=== PATIENT | female | born 1990 | race Caucasian/White ===

== ENCOUNTER 2020-03-13 18:32 | Inpatient (IN) | payer OTHER, SELFPAY ==
[2020-03-13] VITALS (33 sets, daily range): BP systolic 111–149; BP diastolic 50–88; PULSE 63–138; TEMP 37; O2SAT 99–100; BMI 28.8
[2020-03-13 21:18] LABS: Basophils Percent Auto 0.2 % (0.2-1.2); Eosinophils Percent Auto 0.2 % (0-4.4); Hematocrit 38.8 % (37.0-47.0); Hemoglobin 14.1 g/dL (12.0-15.0); Immature Granulocyte Absolute 0.06 K/mm3 (0.00-0.031); Immature Granulocyte Percent A 0.6 % (0-0.5); Lymphocytes Absolute Auto 1.89 K/mm3 (0.9-3.2); Lymphocytes Percent Auto 18.9 % (18.3-44.2); Mean Corpuscular HGB Conc 36.3 g/dl (32-36); Mean Corpuscular Hemoglobin 33.3 pg (26-34); Mean Corpuscular Volume 91.7 fl (80-100); Monocytes Absolute Auto 0.6 K/mm3 (0.1-0.6); Monocytes Percent Auto 6.4 % (2.6-8.5); Neutrophils Absolute Auto 7.4 K/mm3 (1.3-6.7); Neutrophils Percent Auto 73.7 % (45.5-73.1); Platelet Count Result 171 k/mm3 (150-375); Red Blood Count 4.23 M/mm3 (4.2-5.4); Red Cell Distribution Width 12.7 % (11.5-14.5)
[2020-03-13] MEDS: LACTATED RINGERS 1,000 ML 125 ML IV CONT ×2 (21:21→22:40)
--- NOTE | 2020-03-13 21:24 | LDADM ---
This patient, Miri Arias, was admitted to Labor/Delivery/Recovery 107 on 03/13/20 at 18:32. Plans for labor, pain management and were discussed with patient. Patient/family oriented to hospital policies and general routines including ID bracelet, bed and alarms, visiting hours, pain management, procedures, bathroom and other care routines, personal items, smoking policy, room service/diet and guest tray routines, infant security routines, and visiting hours. Patient/Family are encouraged to report perceived risks to care and to ask questions if they do not understand what they are told or what they should do. See OBIX for further documentation.
--- NOTE | 2020-03-13 22:01 | WPDANESEPPF ---
Anes - Initial Pre Proc Eval Procedure: labor epidural Date/Time: 03/13/20 22:01 Surgeon: Zach Flynn MD Pre Op Diagnosis: labor pain Pre Op Diagnosis: Contractions Patient Data Age: 29 Gender: F Height: 1.65 m Weight: 78.5 kg Last Vital Signs Pulse 81 03/13/20 22:00 BP 124/72 03/13/20 22:00 Pulse Ox 99 03/13/20 21:57 Allergies Allergy/AdvReac Type Severity Reaction Status Date / Time Penicillins Allergy Mild RASH,NAUSEA Verified 02/17/20 13:23 Home Medications Medication Instructions Recorded Confirmed Type PNV cmb#95-ferrous fumarate-FA 1 tablet PO DAILY 02/17/20 02/17/20 History [] Laboratory Tests 03/13/20 03/13/20 21:12 21:12 WBC 10.0 K/mm3 K/mm3 (4.5-10.0) RBC 4.23 M/mm3 M/mm3 (4.2-5.4) Hgb 14.1 g/dL g/dL (12.0-15.0) Hct 38.8 % % (37.0-47.0) MCV 91.7 fl fl (80-100) MCH 33.3 pg pg (26-34) MCHC 36.3 g/dl H g/dl (32-36) RDW 12.7 % % (11.5-14.5) Plt Count 171 k/mm3 k/mm3 (150-375) MPV 10.0 fl fl (7.4-10.4) Immature Gran % (Auto) 0.6 % H % (0-0.5) Neut % (Auto) 73.7 % H % (45.5-73.1) Lymph % (Auto) 18.9 % % (18.3-44.2) [place] % (Auto) 6.4 % % (2.6-8.5) Eos % (Auto) 0.2 % % (0-4.4) Baso % (Auto) 0.2 % % (0.2-1.2) Lymph # (Auto) 1.89 K/mm3 K/mm3 (0.9-3.2) [place] # (Auto) 0.6 K/mm3 K/mm3 (0.1-0.6) Eos # (Auto) 0.0 K/mm3 K/mm3 (0-0.3) Baso # (Auto) 0.0 K/mm3 K/mm3 (0.0-0.1) Abs Immat Gran (auto) 0.06 K/mm3 H K/mm3 (0.00-0.031) Absolute Neuts (auto) 7.4 K/mm3 H K/mm3 (1.3-6.7) Absolute Nucleated RBC 0.0 K/mm3 K/mm3 (0.0-0.012) Nucleated RBC % 0.0 % % (0.0-0.2) RPR Pending Patient hx anesthesia problems: none Family hx anesthesia problems: none [facility] Family History Family History Other Unknown family medical history Social History Social History Smoking status: Never smoker Substance use: never Spiritual care concerns: No Anes - Eval Final PreProcedure Day of Procedure 03/13/20 22:01 Patient weight: normal Heart: regular rate and rhythm Lungs: clear to auscultation and normal air movement Airway: Mallampati scale Neurological: alert and oriented ASA classification: II Anesthetic plan: proceed Anesthesia type and monitoring: regional epidural and standard monitoring Informed Consent: The patient's anesthetic plan and its attendant risks and benefits were discussed with the patient/family/POA. Questions were solicited and answers provided to the satisfaction of the patient/family/POA.
--- NOTE | 2020-03-13 22:34 | WPDOBADMIT ---
Obstetrics - Admit Note Admission Note: record reviewed. Additions to the history and/or subsequent changes in the physical findings follow. 29 y/o at 39 2/7 weeks here with contractions. GBS neg. Cervix changed from 2 to 4 cm and labor was diagnosed. She was admitted and is now comfortable with an epidural. AVSS NST reactive TOCO: contractions every 2-3 min ABD soft, nontender, gravid, vertex EXT nontender Cervix 6-7/90/0. AROM with clear fluid. Vertex. A: IUP at term with labor. P: Anticipate .
[2020-03-13] MEDS: OXYTOCIN 30 UNITS/NS 500 ML 30 UNITS/500 ML BAG 999 UNITS IV CONT (23:03)
--- NOTE | 2020-03-13 23:21 | P.PCNOB_ITS ---
OB - Delivery Note Procedure Delivery date: 03/13/20 Procedure: Delivery monitor: external FHT and external uterine Route of delivery: Laceration description: Perineal - 2nd Degree Delivery repair: vicryl (3-0 Vicryl) Specimen: Yes (cord blood) Estimated blood loss (mL): 220 Anesthesia type: Epidural Disposition: PACU Complications: None Narrative: 29 y/o at 39 2/7 weeks gestation who presented to the hospital with contractions. Labor was diagnosed. Amniotomy was performed with return of clear fluid. She received an epidural for pain control. Her labor progressed rapidly and her cervix dilated completely. She pushed with good effort and delivered the infant's head to the perineum, followed by the body. The nose and mouth were bulb suctioned. After a delay, the cord was clamped and cut. The infant was handed off the field. Cord blood was collected. The placenta delivered spontaneously and was grossly normal in appearance. The usual 3 vessel cord was noted. A second degree midline perineal laceration was sustained. This was reapproximated using 3 0 Vicryl in the usual layered fashion. Excellent hemostasis resulted as did excellent reapproximation of the normal anatomy. Needle and instrument counts were correct. The patient was taken to recovery room in stable condition. The went to the nursery in stable condition. I was present and scrubbed for the entire delivery. [place] Baby Date of : 03/13/20 Time of : 22:59 Weeks of gestation at delivery: 39 Infant gender: Male Weight (pounds): 7 Weight (ounces): 3 presentation: vertex position: Left Occiput Anterior Placenta delivery description: Spontaneous and Normal Configuration cord vessel description: 3 Vessels score one minute: 9 score five minutes: 9
--- NOTE | 2020-03-13 23:29 | PM.OBDSVD ---
DS: Admitting Diagnosis Admitting Diagnosis Admitting Diagnosis: IUP at 39 2/7 weeks Labor DS: Discharge Diagnosis Discharge Diagnosis (1) (normal spontaneous vaginal delivery): Code(s): O80 - Encounter for full-term uncomplicated delivery Status: Acute OB - DS: Summary OB Procedures : None OB Procedures Intrapartum: Spontaneous Vag Delivery OB Procedures: : None Time Spent with Patient Time attestation: Total time spent providing and/or coordinating discharge services: DS: Data Data Completed and Pending Labs on day of discharge: Labs from last 24 hours 03/13/20 03/13/20 03/13/20 21:12 21:12 21:12 WBC 10.0 RBC 4.23 Hgb 14.1 Hct 38.8 MCV 91.7 MCH 33.3 MCHC 36.3 H RDW 12.7 Plt Count 171 MPV 10.0 Immature Gran % (Auto) 0.6 H Neut % (Auto) 73.7 H Lymph % (Auto) 18.9 [place] % (Auto) 6.4 Eos % (Auto) 0.2 Baso % (Auto) 0.2 Lymph # (Auto) 1.89 [place] # (Auto) 0.6 Eos # (Auto) 0.0 Baso # (Auto) 0.0 Abs Immat Gran (auto) 0.06 H Absolute Neuts (auto) 7.4 H Absolute Nucleated RBC 0.0 Nucleated RBC % 0.0 RPR Pending Blood Type A Positive Antibody Screen Negative Discharge Plan Discharge Attending physician on discharge: Zach Flynn Consulting providers: Barak Hernández Discharging Clinician: Zach Flynn Patient Disposition: Home, Self-Care Activity: pelvic rest Diet: regular Discharge Instructions: Call or return if temperature above 100.4? F, increased abdominal pain, increased vaginal bleeding or any new problems. Stand Alone Forms: General Discharge Information Follow-up/Referrals: Zach Flynn MD [Physician] - (6 weeks) Discharge Medications: New ibuprofen 600 mg tablet 600 mg PO Q6H PRN (Reason: cramps) Qty: 30 RF: 0 No Action PNV cmb#95-ferrous fumarate-FA [] 28 mg iron- 800 mcg Tablet 1 tablet PO DAILY RF: 0 Date of admission: 03/13/20 18:32 Primary Care Provider: PHYSICIAN,INTELLIGENCE OFFICER BASIC Admitting Provider: Zach Flynn Attending physician on admission: Zach Flynn
[2020-03-13] MEDS: OXYTOCIN 30 UNITS/NS 500 ML 30 UNITS/500 ML BAG 125 UNITS IV CONT (23:36)
[2020-03-14] MEDS: BENZOCAINE 20% AER SPR (*SP) 56 GM CAN 1 SPRAY TOPICAL (01:37)
[2020-03-14] MEDS: WITCH HAZEL 40 PADS 1 PAD TOPICAL (01:37)
--- NOTE | 2020-03-14 02:54 | PC.NURSE ---
Patient transferred to post room #292 via wheelchair. Support person present. Oriented to unit, room, information board, rooming in, admission packet and security measures. Patient verbalizes understanding.
[2020-03-14 02:57] VITALS: BP 122/78; PULSE 68; RESP 16; TEMP 36.8; O2SAT 100
[2020-03-14 05:13] LABS: Hematocrit 33.8 % (37.0-47.0)
[2020-03-14 08:15] VITALS: BP 100/63; PULSE 67; RESP 16; TEMP 36.5
--- NOTE | 2020-03-14 11:55 | PM.OBPNVD ---
OB - PN: Subj Subjective Date/time seen: 03/14/20 11:55 Narrative: Pain OK. Would like circumcision for son. OB - PN: Obj Data Labs CBC & Chem 7: 03/14/20 04:08 Labs: Laboratory Results - last 24 hr 03/13/20 03/13/20 03/14/20 21:12 21:12 04:08 WBC 10.0 RBC 4.23 Hgb 14.1 12.0 Hct 38.8 33.8 L MCV 91.7 MCH 33.3 MCHC 36.3 H RDW 12.7 Plt Count 171 MPV 10.0 Immature Gran % (Auto) 0.6 H Neut % (Auto) 73.7 H Lymph % (Auto) 18.9 [place] % (Auto) 6.4 Eos % (Auto) 0.2 Baso % (Auto) 0.2 Lymph # (Auto) 1.89 [place] # (Auto) 0.6 Eos # (Auto) 0.0 Baso # (Auto) 0.0 Abs Immat Gran (auto) 0.06 H Absolute Neuts (auto) 7.4 H Absolute Nucleated RBC 0.0 Nucleated RBC % 0.0 Blood Type A Positive Antibody Screen Negative OB - PN A/P Plan Comments: A: PPD#1, doing well. P: Routine care. Reviewed circumcision. Exam Psych: Other: AVSS ABD soft, nontender, fundus firm EXT nontender
[2020-03-14] MEDS: IBUPROFEN 600 MG TABLET PO ×2 (14:52→20:10)
[2020-03-14 19:15] VITALS: BP 114/68; PULSE 68; RESP 18; TEMP 36.8; O2SAT 100
--- NOTE | 2020-03-14 19:15 | PC.NURSE ---
Patient to view the discharge video Mother & Baby Care, The First Two Weeks online. Patient was advised and encouraged to ask questions. Patient verbalized understanding of information shared and has been given the mother/baby guide for home reference.
[2020-03-15] MEDS: IBUPROFEN 600 MG TABLET PO (05:26)
[2020-03-15 07:30] VITALS: BP 121/93; PULSE 49; RESP 16; TEMP 36.3
[2020-03-15] MEDS: DOCUSATE SODIUM 100 MG CAPSULE PO (07:42)
[2020-03-15] MEDS: POLYSACCHARIDE IRON COMPLEX 150 MG CAPSULE PO (07:42)
[2020-03-15] MEDS: MULTIVIT/MIN/PREN/FOL AC/IRON TABLET 1 TAB PO (07:42)
--- NOTE | 2020-03-15 11:10 | PM.OBPNVD ---
OB - PN: Subj Subjective Date/time seen: 03/15/20 11:10 Narrative: Pain OK. Would like to go home. OB - PN: Obj Data Labs CBC & Chem 7: 03/14/20 04:08 OB - PN A/P Plan Comments: A: PPD#2, doing well. P: Home to f/u 6 weeks. Exam Psych: Other: AVSS ABD soft, nontender, fundus firm EXT nontender
[2020-03-16 07:19] LABS: Rapid Plasma Reagin Non-Reactive (NonReactive)
[2020-03-16 09:07] VITALS: BP 119/74; PULSE 80; RESP 16; TEMP 36.9; O2SAT 99
== END 2020-03-15 12:13 | disposition home or self-care (01) | DRG 807 ==
LOC: ANHLDR 23:31 → ANHOB2 03-14 02:09
PROVIDERS: Admitting Provider Obstetrics & Gynecology; Visit Provider Obstetrics & Gynecology
DX: O70.1 Second degree perineal laceration during delivery (principal); Z37.0 Single live birth; Z3A.39 39 weeks gestation of pregnancy; Z23 Encounter for immunization
CPT/HCPCS: 36415; 85014; 85018; 85025; 86592; 86850; 86900; 86901; 90471; 90686; A9270; G0008; J2590; J2795; J7120

== ENCOUNTER 2020-03-20 13:41 | Emergency (ER) | payer OTHER, SELFPAY ==
--- NOTE | ~2020-03-20 | US_ITS ---
EXAMINATION: US pelvic complete DATE: 03/20/2020 15:06 INDICATION: bleeding. TECHNIQUE: Multiple transabdominal sonographic images of the pelvis were obtained. COMPARISON: None. FINDINGS: The uterus measures 15.6 x 8.1 x 9.8 cm. There is no free fluid in the pelvis. The endometrial comple x measures 2.8 cm in thickness. There is no definite internal vascular flow above the level of noise on color Doppler. The right ovary measures 3.5 x 1.9 x 3.5 cm. The left ovary measures 2.2 x 1.3 x 1. 4 cm. There is normal vascular flow in the ovaries. IMPRESSION: 1. Thickened endometrial complex suspicious for retained products of conception. Reviewed, dictated and finalized at location A. IMPRESSION: 1. Thickened endometrial complex suspicious for retained products of conception .
[2020-03-20 14:24] VITALS: BP 133/89; PULSE 80; RESP 15; TEMP 37.1; O2SAT 99
--- NOTE | 2020-03-20 14:25 | ED.ABDPAIN ---
HPI - Abdominal Pain General Chief Complaint: Urogenital-Female Stated Complaint: 29YO who underwent at 39wks 3 days uncomplicated here c/o passing a large clot on PP day 8. Called Dr Mondragon office and was asked to come into ED for evaluation. Related Data Home Medications Medication Instructions Recorded Confirmed PNV cmb#95-ferrous fumarate-FA 1 tablet PO DAILY 02/17/20 02/17/20 [] Allergies Allergy/AdvReac Type Severity Reaction Status Date / Time Penicillins Allergy Mild RASH,NAUSEA Verified 02/17/20 13:23 Review of Systems Review of Systems: All systems reviewed & are unremarkable except as noted in HPI and below Constitutional: Constitutional: Reports as per HPI Eyes: Eyes: Reports as per HPI ENT: Reports system reviewed and no additional complaints, except as documented [facility] Social History Social History Smoking status: Never smoker Substance use: never Spiritual care concerns: No Exam Const: General: healthy appearing, no acute distress and alert Orientation/consciousness: patient oriented x3 HENMT: Head: normal to inspection Eyes: Conjunctivae: conjunctivae normal Pupils: Equal, round and reactive pupils present Neck: Neck: normal visual inspection Chest: Chest palpation & inspection: normal inspection of the chest Resp: Effort & Inspection: normal respiratory effort Auscultation: clear to auscultation bilaterally Cardio: Rate: regular rate Rhythm: regular rhythm GI: Inspection: non-distended GI Palp: Yes Soft to palpation and No Tenderness to palpation present (GI) Auscultation: normal bowel sounds : General: Yes no CVA tenderness Urinary Catheter: Urinary Catheter: patent and draining Skin: General skin exam: normal color Neuro: General: patient oriented x3, moves all extremities, no meningeal signs, no focal motor deficits and CN's II-XI intact bilaterally Extrem: General: normal to inspection Psych: Mental Status: mental status grossly normal Course Consultations Consultation #1: D/W Dr Angel Aviles (OB) who requests patient be transferred to [place] for D&C. She is ok to [facility] by private vehicle. Date: 03/20/20 Time: 15:26 Transfer Transfered to: [place] MDM - Abdominal Pain Differential Diagnosis Differential diagnosis: Likely other ( bleeding w/ brown material concerning for POC. ) Medical Records Attestation: I reviewed the patient's medical records. Lab Data Attestation: I reviewed the patient's lab results. Critical Care Time Critical Care Time Critical Care Time: No Discharge Plan Discharge Clinical Impression: Retained portions of products of conception following delivery without hemorrhage Patient Disposition: Acute Care Hospital Condition: Stable Additional Instructions: To [facility] by Private Vehicle. Prescriptions: No Action PNV cmb#95-ferrous fumarate-FA [] 28 mg iron- 800 mcg Tablet 1 tablet PO DAILY RF: 0 ibuprofen 600 mg tablet 600 mg PO Q6H PRN (Reason: cramps) Qty: 30 RF: 0 Follow-up/Referrals: Julio César,Pete Scruggs MD [Primary Care Provider] - Time of Disposition: 15:33
[2020-03-20 14:29] LABS: Basophils Absolute Auto 0.03 K/mm3 (0.00-0.10); Basophils Percent Auto 0.3 % (0.0-1.0); Eosinophils Absolute Auto 0.07 K/mm3 (0.02-0.50); Eosinophils Percent Auto 0.8 % (1.0-6.0); Hematocrit 42.3 % (35.0-49.0); Hemoglobin 14.7 g/dL (12.0-15.0); Immature Granulocyte Absolute 0.04 K/mm3 (0.00-0.00); Immature Granulocyte Percent A 0.4 % (0.0-0.0); Lymphocytes Absolute Auto 1.55 K/mm3 (1.10-4.50); Lymphocytes Percent Auto 17.1 % (18.0-42.0); Mean Corpuscular HGB Conc 34.8 g/dL (32.0-36.0); Mean Corpuscular Hemoglobin 32.9 pg (27.0-31.0); Mean Corpuscular Volume 94.6 fL (78.0-102.0); Mean Platelet Volume 9.3 fl (9.2-11.8); Monocytes Absolute Auto 0.59 K/mm3 (0.10-0.90); Monocytes Percent Auto 6.5 % (2.0-11.0); Neutrophils Absolute Auto 6.8 K/mm3 (1.7-7.2); Neutrophils Percent Auto 74.9 % (50.0-70.0); Platelet Count Result 272 K/mm3 (150-420); Red Blood Count 4.47 M/mm3 (4.20-5.40); Red Cell Distribution Width 11.9 % (11.6-14.4); White Blood Count 9.1 K/mm3 (4.8-10.8)
[2020-03-20 14:42] LABS: Partial Thromboplastin Time 28.6 SEC (22.3-31.6)
[2020-03-20 14:46] LABS: Anion Gap 7 mmol/L (8-16); Blood Urea Nitrogen 9 mg/dL (7-18); Carbon Dioxide 27 mmol/L (21-32); Chloride 106 mmol/L (98-108); Estimated CRCL calculation 72 ml/min; Estimated Glomerular Filt Rate > 60; Glucose 101 mg/dL (70-99); Osmolality Calculated 288 mOsm/kg (285-295); Sodium 140 mmol/L (136-145)
[2020-03-20 14:47] LABS: Alanine Aminotransferase 21 U/L (14-59); Albumin Level 3.4 g/dL (3.4-5.0); Alkaline Phosphatase 90 U/L (46-116); Aspartate Amino Transferase 12 U/L (15-37); Bilirubin,Total 0.4 mg/dL (0.00-1.00); Total Protein 7.9 g/dL (6.4-8.2)
[2020-03-20] MEDS: SODIUM CHLORIDE 0.9% IV 1,000 ML 999 ML IV CONT (15:00)
[2020-03-20 16:25] VITALS: BP 163/79; PULSE 95; RESP 20; O2SAT 100
== END 2020-03-20 16:35 | disposition short-term general hospital (02) ==
PROVIDERS: Emergency Provider Family Medicine; PCP Internal Medicine
DX: O73.1 Retained portions of placenta and membranes, without hemorrhage (principal)
CPT/HCPCS: 36415; 76856; 80053; 85025; 85610; 85730; 96360; 99283; 99284; J7030

== ENCOUNTER 2020-03-20 17:19 | Day surgery (SDC) | payer OTHER, SELFPAY ==
[2020-03-20 17:43] VITALS: BMI 25.8
--- NOTE | 2020-03-20 18:07 | WPDANESEPP ---
Anes - Eval Pre Procedure Procedure: Operation Date: 03/20/20 17:00 Proposed Procedures p Suction Dilation And Curettage - Thiago Abbasi MD Date/Time: 03/20/20 18:07 Pre Op Diagnosis: Retained Placenta Patient Data Age: 29 Gender: F Height: Weight: Allergies Allergy/AdvReac Type Severity Reaction Status Date / Time Penicillins Allergy Mild RASH,NAUSEA Verified 03/20/20 17:46 Home Medications Medication Instructions Recorded Confirmed Type PNV cmb#95-ferrous fumarate-FA 1 tablet PO DAILY 02/17/20 03/20/20 History [] ibuprofen 600 mg PO Q6H PRN #30 tablet 03/13/20 03/20/20 Rx Patient hx anesthesia problems: none Family hx anesthesia problems: none PMFSH Past Medical History Medical History (Updated 03/20/20 @ 18:08 by Lazaro Camejo CRNA) (normal spontaneous vaginal delivery) Retained portions of products of conception following delivery without hemorrhage Family History Family History Other Unknown family medical history Social History Social History Smoking status: Never smoker Substance use: never Spiritual care concerns: No Exam Day of Procedure 03/20/20 18:07 Patient weight: normal
--- NOTE | 2020-03-20 18:08 | P.PNAN_ITS ---
Anes - Initial Pre Proc Eval Procedure: Operation Date: 03/20/20 17:00 Proposed Procedures p Suction Dilation And Curettage - Thiago Abbasi MD Date/Time: 03/20/20 18:08 Surgeon: Thiago Abbasi MD Pre Op Diagnosis: Retained Placenta Patient Data Age: 29 Gender: F Height: Weight: Allergies Allergy/AdvReac Type Severity Reaction Status Date / Time Penicillins Allergy Mild RASH,NAUSEA Verified 03/20/20 17:46 Home Medications Medication Instructions Recorded Confirmed Type PNV cmb#95-ferrous fumarate-FA 1 tablet PO DAILY 02/17/20 03/20/20 History [] ibuprofen 600 mg PO Q6H PRN #30 tablet 03/13/20 03/20/20 Rx Patient hx anesthesia problems: none Family hx anesthesia problems: none PMFSH Past Medical History Medical History (normal spontaneous vaginal delivery) Retained portions of products of conception following delivery without h emorrhage Family History Family History Other Unknown family medical history Social History Social History Smoking status: Never smoker Substance use: never Spiritual care concerns: No Anes - Eval Final PreProcedure Day of Procedure 03/20/20 18:08 Patient weight: normal Heart: regular rate and rhythm Lungs: clear to auscultation Airway: Mallampati scale class 1 Neurological: alert and oriented Last oral intake: 6 hours ASA classification: I Emergent: yes Anesthetic plan: proceed Anesthesia type and monitoring: general Informed Consent: The patient's anesthetic plan and its attendant risks and benefits were discussed with the patient/family/POA. Questions were solicited and answers provided to the satisfaction of the patient/family/POA.
--- NOTE | 2020-03-20 18:08 | PM.IMHP ---
H&P: HPI History of Present Illness Date/Time: 03/20/20 18:08 Chief complaint: Retained Placenta Narrative: Miri Arias is a 29 year old female Transferred from [facility] is a week out from a delivery. She was experiencing heavy bleeding. Ultrasound and saw me are shows retained products of conception. She is offered suction D& C. Risks and benefits reviewed Review of Systems Review of Systems: All systems reviewed & are unremarkable except as noted in HPI and below PMFSH Past Medical History Medical History (normal spontaneous vaginal delivery) Retained portions of products of conception following delivery without hemorrhage Family History Family History Other Unknown family medical history Social History Social History Smoking status: Never smoker Substance use: never Spiritual care concerns: No Meds Home Medications and Allergies Home Medications Medication Instructions Recorded Confirmed Type PNV cmb#95-ferrous fumarate-FA 1 tablet PO DAILY 02/17/20 03/20/20 History [] ibuprofen 600 mg PO Q6H PRN #30 tablet 03/13/20 03/20/20 Rx Allergies Allergy/AdvReac Type Severity Reaction Status Date / Time Penicillins Allergy Mild RASH,NAUSEA Verified 03/20/20 17:46 Exam Const: General: no acute distress Eyes: General: appearance normal, both eyes and all related structures Neck: Neck: supple and no JVD Thyroid: thyroid normal Resp: Effort & Inspection: normal respiratory effort Auscultation: clear to auscultation bilaterally Cardio: Rate: regular rate Rhythm: regular rhythm GI: Inspection: non-distended GI Palp: Yes Soft to palpation, No Tenderness to palpation present (GI) and No Guarding due to palpation present (GI) Auscultation: normal bowel sounds : Speculum Exam - Vagina: vaginal bleeding Bimanual exam- vagina & uterus: boggy Skin: General skin exam: no rashes or lesions noted Extrem: General: normal to inspection and no edema Psych: Mental Status: mental status grossly normal Affect: normal affect Assessment and Plan Additional Plan impression: The bleeding Plan: Suction dilatation and curettage
--- NOTE | 2020-03-20 18:31 | SUR.PREOP ---
BREAST MILK PUMP OBTAINED FROM 2ND FLOOR OB; PT PUMPING IN ROOM.
--- NOTE | 2020-03-20 19:57 | PM.PROC ---
Procedure Note - Detailed Date of procedure: 03/20/20 Pre-op diagnosis: Retained Placenta Surgeon: Valerie diagnosis: Retained placenta Procedure: Suction dilatation curettage Anesthesia: IV sedation/ local EBL: 50cc Findings: Products of conception Complications: None Description of procedure: The patient was prepped and draped in normal sterile fashion placed in the dorsal lithotomy position. Under excellent IV sedation weighted speculum placed in posterior fornix of vagina. Anterior lip of the cervix grasped with an ring forceps. The uterus sounded to 12cm after 2.5cc of 1% xylocaine anesthesia placed at 2:48 a.m. 10:00 a.m. respectively of the cervix. The 10. Suction curette was passed several times removing a moderate amount of clot and placental tissue. When a good grating sound was heard, no further tissue was able to be procedure was terminated. All sponge, needle, instrument counts were correct. There were no immediate complications
[2020-03-20 20:00] VITALS: BP 113/61; PULSE 65; RESP 16; O2SAT 99
[2020-03-20] MEDS: LACTATED RINGERS 1,000 ML 30 ML IV CONT (20:00)
[2020-03-20 20:30] VITALS: BP 109/63; PULSE 54; RESP 16; O2SAT 100
[2020-03-20 20:44] VITALS: BP 125/74; PULSE 66; RESP 16
--- NOTE | 2020-03-20 20:53 | SUR.PHASEII ---
PT USING BREASTPUMP IN ROOM. AWAITING RIDE.
== END 2020-03-20 21:20 | disposition home or self-care (01) ==
PROVIDERS: PCP Internal Medicine; Visit Provider Obstetrics & Gynecology
PROC: (CPT 59160; principal; 2020-03-20 17:00)
DX: O72.2 Delayed and secondary postpartum hemorrhage (principal)
CPT/HCPCS: 59160; 88305; A9270; J2001; J2250; J2405; J2704; J3010; J7120

== ENCOUNTER 2021-08-14 09:23 | Emergency (ER) | payer OTHER, SELFPAY ==
--- NOTE | ~2021-08-14 | XR_ITS ---
EXAMINATION: XR hand LT min 3V INDICATION: Left hand pain TECHNIQUE: Three views of the left hand are obtained COMPARISON: None available FINDINGS: There is no fracture, dislocation, or subluxation. The bones, soft tissues, and joint space s are normal. IMPRESSION: 1. No acute osseous abnormality. Reviewed, dictated and finalized at location A. SCHOOL PROFESSIONAL
[2021-08-14 09:27] VITALS: BP 125/85; PULSE 79; RESP 18; TEMP 36.6; O2SAT 100
--- NOTE | 2021-08-14 10:17 | ED.UPPEXIN ---
HPI - Extremity Injury (Upper) General Chief Complaint: Extremity Injury, Upper Stated Complaint: Left Hand Complaint Time Seen by Provider: 08/14/21 09:26 Source: RN notes reviewed History of Present Illness HPI narrative: Patient presents emergency room from home for left hand pain. Patient states she fell approximately a week and a half ago and injured her left second digit at that time she states that the finger been doing better and then 3 days ago she had awoken with pain and swelling at the base of the second digit on the left she states that with that she had swelling over the posterior aspect of the hand as well as the palmar aspect of the hand at the base of the second digit she denies any known new trauma or injury patient is unable to fully extend that finger states that she is able to flex but is then limited secondary to the swelling she denies any fevers or chills or any other symptoms she is approximately 22 weeks denies any complications with the she gone to urgent care 2 days ago and x-rays were taken at that time were negative and was placed in a AlumaFoam finger splint Related Data Home Medications Medication Instructions Recorded Confirmed PNV cmb#95-ferrous fumarate-FA 1 tablet PO DAILY 02/17/20 03/20/20 [] Allergies Allergy/AdvReac Type Severity Reaction Status Date / Time Penicillins Allergy Mild RASH,NAUSEA Verified 03/20/20 17:46 Review of Systems Review of Systems: Gen.: Denies fevers or chills Musculoskeletal: See HPI Neuro: Denies numbness, tingling, weakness Skin: Denies rash Endo: Denies DM PMFSH Past Medical History Medical History (Updated 08/14/21 @ 10:39 by Carlos Baez DO) (normal spontaneous vaginal delivery) Retained portions of products of conception following delivery without hemorrhage Family History Family History Other Unknown family medical history Social History Social History Smoking status: Never smoker Substance use: never Spiritual care concerns: No Exam Narrative: APPEARANCE: No acute distress, nontoxic, resting in bed Eyes: EOMI HEENT: Normocephalic, atraumatic, RESPIRATORY: No respiratory distress MUSCULOSKELETAl: Left hand with swelling over the base of the second and third MCP joints no ecchymosis no erythema the finger is not swollen the finger is nontender to palpation there is point tenderness over the palmar aspect at the second MCP joint but no tenderness along the flexor tendon capillary refill less than 3 seconds neurovascular intact unable to extend at the MCP or IP joint, normal extension at the DIP joint, full flexion at the second DIP and MCP joint with limited flexion to 45 degrees at the MCP joint NEURO: Awake and alert. Following commands, speech normal, no focal deficits SKIN:: Warm, dry. Normal Color no rash or lesions Course Course Emergency Course: Discussed. Agrees with plan for splint with follow-up in the office with Dr. Gomez discussed inability to extend finger with concerns of tendon injury Discussed with patient results of workup and diagnosis. Discussed need for follow-up with primary care, proper use of medication, and reasons to return to the emergency department. Patient understands and agrees to current treatment plan discussed with patient my conversation with hand specialist need for follow-up on Monday Vital Signs Vital signs: Vital Signs Temperature 97.8 F 08/14/21 09:27 Pulse Rate 79 08/14/21 09:27 Respiratory Rate 18 08/14/21 09:27 Blood Pressure 125/85 08/14/21 09:27 Pulse Oximetry 100 08/14/21 09:27 Temperature 97.8 F 08/14/21 09:27 Pulse Rate 79 08/14/21 09:27 Respiratory Rate 18 08/14/21 09:27 Blood Pressure 125/85 08/14/21 09:27 Pulse Oximetry 100 08/14/21 09:27 Procedures Orthopedic Splinting/Casting Injury #1:
== END 2021-08-14 10:49 | disposition home or self-care (01) ==
PROVIDERS: Emergency Provider Emergency Medicine; PCP Internal Medicine
DX: S63.611A Unspecified sprain of left index finger, initial encounter (principal); Z33.1 Pregnant state, incidental; W01.0XXA Fall on same level from slipping, tripping and stumbling without subsequent striking against object, initial encounter
CPT/HCPCS: 29130; 73130; 99283

== ENCOUNTER 2021-11-02 10:49 | Outpatient (CLI) | payer OTHER, SELFPAY ==
[2021-11-02] VITALS (27 sets, daily range): BP systolic 113–133; BP diastolic 69–85; PULSE 69–98; O2SAT 100; BMI 28.4
[2021-11-02 11:20] LABS: Basophils Percent Auto 0.5 % (0.2-1.2); Eosinophils Percent Auto 0.5 % (0-4.4); Hematocrit 35.8 % (37.0-47.0); Hemoglobin 12.9 g/dL (12.0-15.0); Immature Granulocyte Absolute 0.11 K/mm3 (0.00-0.031); Immature Granulocyte Percent A 1.3 % (0-0.5); Lymphocytes Absolute Auto 1.65 K/mm3 (0.9-3.2); Lymphocytes Percent Auto 19.8 % (18.3-44.2); Mean Corpuscular Volume 91.6 fl (80-100); Mean Platelet Volume 9.7 fl (7.4-10.4); Monocytes Absolute Auto 0.6 K/mm3 (0.1-0.6); Monocytes Percent Auto 6.7 % (2.6-8.5); Neutrophils Absolute Auto 5.9 K/mm3 (1.3-6.7); Neutrophils Percent Auto 71.2 % (45.5-73.1); Platelet Count Result 163 k/mm3 (150-375); Red Blood Count 3.91 M/mm3 (4.2-5.4); White Blood Count 8.3 K/mm3 (4.5-10.0)
[2021-11-02 11:35] LABS: Alanine Aminotransferase 13 U/L (4-35); Albumin Level 3.5 g/dL (3.5-5.1); Alkaline Phosphatase 73 U/L (38-126); Anion Gap 6 mmol/L (8-16); Aspartate Amino Transferase 23 U/L (14-36); Bilirubin,Total 0.5 mg/dL (0.2-1.3); Blood Urea Nitrogen 8 mg/dL (7-17); Calcium 7.9 mg/dL (8.4-10.2); Carbon Dioxide 22 mmol/L (22-30); Chloride 106 mmol/L (98-107); Estimated Glomerular Filt Rate > 60; Glucose 80 mg/dL (65-110); Potassium 3.9 mmol/L (3.4-5.0); Sodium 134 mmol/L (137-145); Uric Acid 3.6 mg/dL (2.5-7.5)
[2021-11-02] MEDS: TERBUTALINE SULFATE 1 MG/ML VIAL 0.25 MG SUB-Q (12:08)
--- NOTE | 2021-11-02 12:46 | WPDOBADMIT ---
Obstetrics - Admit Note Admission Note: record reviewed. Additions to the history and/or subsequent changes in the physical findings follow. 31 y/o at 31 6/7 weeks with a long history ocular migraines. Her visual disturbances have become more frequent, nearly occurring daily, and are sometimes associated with headaches. No swelling. Good movement. She was sent from the office for HTN workup, and found to have contractions here. Contractions have resolved after one dose of terbutaline. AVSS NST reactive TOCO: contractions every 5 min, resolved now. ABD soft, nontender, gravid, vertex EXT nontender, no edema. Labs reviewed, all OK. A: Ocular migraines, no evidence of preeclampsia. contractions, resolved. P: Home with precautions. F/u as scheduled.
--- NOTE | 2021-11-02 13:02 | PC.NURSE ---
1245--Dr. Flynn in unit. Reviewed tracing. DC orders given. Pt reminded to call office or return to OB if cramping/contractions resume.
[2021-11-02] MEDS: DEXTROSE 5%/0.45% SOD CHL 1,000 ML 100 ML IV CONT (19:05)
--- NOTE | 2021-11-02 20:00 | PC.NURSE ---
[facility] 1990 [id number] 11/02/21 20:00 - Nurse Note by Belkys Sanchez, RN paged Dr. Angel Rascon- bone plant supervisor for Dr. Flynn.
--- NOTE | 2021-11-02 20:00 | PC.NURSE ---
Addendum entered by Leonel Ball RN 11/18/21 08:47: Recharted on correct [id number] Original Note: paged Dr. Angel Rascon- employee communications coordinator for Dr. Flynn.
--- NOTE | 2021-11-02 20:09 | PC.NURSE ---
Addendum entered by Leonel Ball RN 11/18/21 08:47: Recharted on correct [id number] Original Note: 2000- Dr. Angel Rascon returned page. reviewed labs, reviewed vitals. reviewed FHT. orders received to D/c pt home with instructions to f/u with Dr. Flynn with any concerns. pt to return to L& D if further concerns.
== END 2021-11-02 20:17 | disposition home or self-care (01) ==
LOC: ANHOBOP 10:54 → ANHLDR 10:54 → ANHOBOP 11:54 → ANHOBPP 20:14
PROVIDERS: PCP Internal Medicine; Visit Provider Obstetrics & Gynecology
DX: O13.9 Gestational [pregnancy-induced] hypertension without significant proteinuria, unspecified trimester (principal); Z3A.00 Weeks of gestation of pregnancy not specified
CPT/HCPCS: 36415; 59025; 80053; 81001; 82731; 84550; 85025; 96372; J3105

== ENCOUNTER 2021-11-02 17:00 | Observation (INO) | payer OTHER, SELFPAY ==
[2021-11-02 17:55] LABS: Appearance Urine Clear (Clear); Bilirubin Urine Negative (Negative); Blood Urine Negative (Negative); Color Urine Yellow (Yellow); Glucose Urine UA Negative (Negative); Ketones Urine Negative (Negative); Leukocyte Esterase Ur Trace LEU/UL (Negative); Nitrate Urine Negative (Negative); Protein Urine Negative (Negative); Urobilinogen Urine 0.2 mg/dL (<2.0)
[2021-11-02 18:04] LABS: Mucus Urine Rare /lpf; WBC Urine 0-3 /hpf
[2021-11-02 18:28] LABS: Add Urine Microscopic? YES
[2021-11-02 18:32] LABS: Fetal Fibronectin Negative
--- NOTE | 2021-11-02 20:00 | PC.NURSE ---
[facility] 1990 [id number] 11/02/21 20:00 - Nurse Note by Belkys Sanchez RN Acct Num: [id number] : 1990 Patient Age: [address] Angel Rascon- personal vehicle advisor for Dr. Flynn. Initialized on 11/02/21 20:00 - END OF NOTE
--- NOTE | 2021-11-02 20:09 | PC.NURSE ---
[facility] 1990 [id number] 11/02/21 20:09 - Nurse Note by Belkys Sanchez RN Acct Num: [id number] : 1990 Patient Age: 31 2000- Dr. Angel Rascon returned page. reviewed labs, reviewed vitals. reviewed FHT. orders received to D/c pt home with instructions to f/u with Dr. Flynn with any concerns. pt to return to L& D if further concerns. Initialized on 11/02/21 20:09 - END OF NOTE
--- NOTE | 2021-11-23 08:48 | PM.OBTRLD ---
OB - Triage/Final Diagnosis Visit Information Comments/Additional reasons for admission: I have assessed the risk for this patient, Miri Arias, and determined that she would benefit from observation care. Evaluation Laboratory results: Laboratory Tests 11/02/21 11/02/21 17:46 17:47 Urine Color Yellow Urine Appearance Clear Urine pH 7.0 Ur Specific [place] 1.010 Urine Protein Negative Urine Glucose (UA) Negative Urine Ketones Negative Ur Blood (Man) Negative Urine Nitrate Negative Urine Bilirubin Negative Urine Urobilinogen 0.2 Leukocyte Esterase Rfl Trace H Urine WBC 0-3 Urine Mucus Rare Fibronectin Negative Final Diagnosis (1) False labor: Code(s): O47.9 - False labor, unspecified Status: Acute
== END 2021-11-02 20:09 ==
LOC: ANHLDR 11-18 08:22
PROVIDERS: Admitting Provider Obstetrics & Gynecology; PCP Internal Medicine; Visit Provider Obstetrics & Gynecology
DX: O47.9 False labor, unspecified (principal); Z3A.00 Weeks of gestation of pregnancy not specified
CPT/HCPCS: 81001; 82731; G0378; G0379

== ENCOUNTER 2021-12-14 11:01 | Outpatient (RCR) | payer OTHER, SELFPAY ==
--- NOTE | ~2021-12-14 | US_ITS ---
EXAMINATION: US OB limited w BPP DATE: 12/14/2021 13:02 INDICATION: Variable cardiac decelerations. Assess amniotic fluid index and biophysical profile during third trimester . TECHNIQUE: Real-time pelvic ultrasound was performed. The interpreting radiologist was not present fo r the study. COMPARISON: None. FINDINGS: There is a single living fetus in vertex presentation. The placenta is posterior fundal. heart rate is 135 beats per minute (bpm). Normal amniotic fluid index of 11.7 cm (5th%-95%: 7.2-22.6 cm at 39 weeks estimated gestational age) Biophysical profile performed by the technologist: breathing (30 sec sustained breathing in 30 minutes): 2 out of 2 movement (3 gross body movements in 30 minutes): 2 out of 2 tone (one episode of hfikuqk-osyfdlubl-sxvxgbn limb movement): 2 out of 2 Amniotic fluid pocket (2 cm): 2 out of 2 Total score: 8 out of 8 IMPRESSION: 1. Single living fetus in vertex presentation with heart rate of 135 bpm. 2. Biophysical profile 8 out of 8. 3. Normal amniotic fluid index of 11.7 cm. Reviewed, dictated and finalized at location A.
[2021-12-14 13:59] VITALS: BP 131/89; PULSE 81
== END 2022-01-11 10:49 | disposition home or self-care (01) ==
LOC: ANHOBOP 11:01
PROVIDERS: PCP Internal Medicine; Visit Provider Obstetrics & Gynecology
DX: O36.8330 Maternal care for abnormalities of the fetal heart rate or rhythm, third trimester, not applicable or unspecified (principal); Z3A.00 Weeks of gestation of pregnancy not specified
CPT/HCPCS: 59025; 76815; 76819

== ENCOUNTER 2021-12-15 04:04 | Inpatient (IN) | payer OTHER, SELFPAY ==
[2021-12-15] VITALS (70 sets, daily range): BP systolic 105–155; BP diastolic 61–101; PULSE 51–223; RESP 16; TEMP 35.8–36.8; O2SAT 98–100; BMI 29.9
[2021-12-15 04:42] LABS: Basophils Percent Auto 0.2 % (0.2-1.2); Eosinophils Percent Auto 0.1 % (0-4.4); Hematocrit 39.6 % (37.0-47.0); Hemoglobin 13.6 g/dL (12.0-15.0); Immature Granulocyte Absolute 0.06 K/mm3 (0.00-0.031); Immature Granulocyte Percent A 0.6 % (0-0.5); Lymphocytes Absolute Auto 2.12 K/mm3 (0.9-3.2); Mean Corpuscular HGB Conc 34.3 g/dl (32-36); Mean Corpuscular Volume 93.2 fl (80-100); Mean Platelet Volume 10.4 fl (7.4-10.4); Monocytes Absolute Auto 0.6 K/mm3 (0.1-0.6); Monocytes Percent Auto 6.5 % (2.6-8.5); Neutrophils Absolute Auto 6.8 K/mm3 (1.3-6.7); Neutrophils Percent Auto 70.6 % (45.5-73.1); Platelet Count Result 152 k/mm3 (150-375); Red Blood Count 4.25 M/mm3 (4.2-5.4); Red Cell Distribution Width 13.2 % (11.5-14.5); White Blood Count 9.6 K/mm3 (4.5-10.0)
[2021-12-15] MEDS: LACTATED RINGERS 1,000 ML 999 ML IV CONT ×3 (05:49→08:22)
--- NOTE | 2021-12-15 06:57 | WPDANESEPPF ---
Anes - Initial Pre Proc Eval Procedure: labor epidural Date/Time: 12/15/21 06:57 Surgeon: Zach Flynn MD Pre Op Diagnosis: labor pain Pre Op Diagnosis: Leaking Patient Data Age: 31 Gender: F Height: 1.65 m Weight: 81.6 kg Last Vital Signs Pulse 64 12/15/21 06:55 BP 120/70 12/15/21 06:55 Pulse Ox 100 12/15/21 06:56 O2 Del Method Room Air 12/15/21 05:17 Allergies Allergy/AdvReac Type Severity Reaction Status Date / Time Penicillins Allergy Mild RASH,NAUSEA Verified 03/20/20 17:46 Home Medications Medication Instructions Recorded Confirmed Type vit no.95-ferrous 1 tablet PO DAILY 02/17/20 12/01/21 History fumarate 28 mg-folic acid 800 mcg tablet () Laboratory Tests 12/15/21 12/15/21 12/15/21 04:32 04:32 04:32 WBC 9.6 K/mm3 K/mm3 (4.5-10.0) RBC 4.25 M/mm3 M/mm3 (4.2-5.4) Hgb 13.6 g/dL g/dL (12.0-15.0) Hct 39.6 % % (37.0-47.0) MCV 93.2 fl fl (80-100) MCH 32.0 pg pg (26-34) MCHC 34.3 g/dl g/dl (32-36) RDW 13.2 % % (11.5-14.5) Plt Count 152 k/mm3 k/mm3 (150-375) MPV 10.4 fl fl (7.4-10.4) Immature Gran % (Auto) 0.6 % H % (0-0.5) Neut % (Auto) 70.6 % % (45.5-73.1) Lymph % (Auto) 22.0 % % (18.3-44.2) Ocean % (Auto) 6.5 % % (2.6-8.5) Eos % (Auto) 0.1 % % (0-4.4) Baso % (Auto) 0.2 % % (0.2-1.2) Lymph # (Auto) 2.12 K/mm3 K/mm3 (0.9-3.2) Ocean # (Auto) 0.6 K/mm3 K/mm3 (0.1-0.6) Eos # (Auto) 0.0 K/mm3 K/mm3 (0-0.3) Baso # (Auto) 0.0 K/mm3 K/mm3 (0.0-0.1) Abs Immat Gran (auto) 0.06 K/mm3 H K/mm3 (0.00-0.031) Absolute Neuts (auto) 6.8 K/mm3 H K/mm3 (1.3-6.7) Absolute Nucleated RBC 0.0 K/mm3 K/mm3 (0.0-0.012) Nucleated RBC % 0.0 % % (0.0-0.2) RPR Pending Blood Type A Positive Antibody Screen Negative Patient hx anesthesia problems: none Family hx anesthesia problems: none Results Review: All pre-operative results and documents have been reviewed as part of the pre-operative evaluation. [facility] Past Medical History Medical History (Updated 11/23/21 @ 08:48 by Zach Flynn MD) (normal spontaneous vaginal delivery) Retained portions of products of conception following delivery without hemorrhage Family History Family History Other Unknown family medical history Social History Social History Smoking status: Never smoker Second hand tobacco smoke exposure: No Substance use: never Spiritual care concerns: No Anes - Eval Final PreProcedure Day of Procedure 12/15/21 06:57 Patient weight: overweight and obese ASA classification: II Anesthetic plan: proceed Anesthesia type and monitoring: regional epidural and standard monitoring Results Review: All pre-operative results and documents have been reviewed as part of the pre-operative evaluation. Informed Consent: The patient's anesthetic plan and its attendant risks and benefits were discussed with the patient/family/POA. Questions were solicited and answers provided to the satisfaction of the patient/family/POA.
--- NOTE | 2021-12-15 08:30 | WPDOBADMIT ---
Obstetrics - Admit Note Admission Note: record reviewed. Additions to the history and/or subsequent changes in the physical findings follow. 31 y/o at 39 weeks here with contractions. GBS neg. Now comfortable with epidural. Had SROM with clear fluid here at hospital. AVSS NST reactive TOCO: contractions every 3-5 min ABD soft, nontender, gravid, vertex EXT nontender Cervix 7/90/-1. Vertex. A: Labor at term. P: Anticipate .
[2021-12-15] MEDS: OXYTOCIN 30 UNITS/NS 500 ML 30 UNITS/500 ML BAG IV CONT (08:37)
--- NOTE | 2021-12-15 10:00 | P.PCNOB_ITS ---
OB - Delivery Note Procedure Delivery date: 12/15/21 Procedure: Induction method: None Delivery augmentation: Pitocin Delivery monitor: External FHT and External Uterine Route of delivery: Laceration Description: Perineal - 2nd Degree Delivery repair: vicryl (3-0) Specimen: Yes (cord blood) Quantitative Blood Loss (ml): 45 Anesthesia type: Epidural Disposition: PACU Complications: None Narrative: 31 y/o at 39 weeks gestation who presented to the hospital with contractions and a gush of clear fluid. SROM/labor diagnosed. She received an epidural for pain control. Her labor progressed and her cervix dilated completely. Labor was briefly augmented with oxytocin, and her cervix dilated completely. She pushed with good effort and delivered the infant's head to the perineum, followed by the body. The nose and mouth were bulb suctioned. After a delay, the cord was clamped and cut. The was handed off the field. Cord blood was collected. The placenta delivered spontaneously and was grossly normal in appearance. The usual 3 vessel cord was noted. A second degree midline perineal laceration was sustained. This was reapproximated using 3 0 Vicryl in the usual layered fashion. Excellent hemostasis resulted as did excellent reapproximation of the normal anatomy. Needle and instrument counts were correct. The patient was taken to recovery room in stable condition. The went to the nursery in stable condition. I was present and scrubbed for the entire delivery. [place] Baby Date of : 12/15/21 Time of : 09:41 Weeks of gestation at delivery: 39 gender: Female Weight (pounds): 7 Weight (ounces): 3 presentation: vertex position: Right Occiput Anterior Placenta delivery description: Spontaneous and Normal Configuration Cord Vessel Description: 3 Vessels and Delayed Cord Clamping score one minute: 9 score five minutes: 9
--- NOTE | 2021-12-15 10:02 | PM.OBDSVD ---
DS: Admitting Diagnosis Discharge Date 12/17/21 Admitting Diagnosis IUP at 39 weeks SROM Labor DS: Discharge Diagnosis Discharge Diagnosis (1) (normal spontaneous vaginal delivery): Code(s): O80 - Encounter for full-term uncomplicated delivery Status: Acute OB - DS: Summary OB Procedures : None OB Procedures Intrapartum: Spontaneous Vag Delivery OB Procedures: : None Time Spent with Patient Time attestation: Total time spent providing and/or coordinating discharge services: DS: Data Data Completed and Pending Labs on day of discharge: Labs from last 24 hours 12/15/21 12/15/21 12/15/21 04:32 04:32 04:32 WBC 9.6 RBC 4.25 Hgb 13.6 Hct 39.6 MCV 93.2 MCH 32.0 MCHC 34.3 RDW 13.2 Plt Count 152 MPV 10.4 Immature Gran % (Auto) 0.6 H Neut % (Auto) 70.6 Lymph % (Auto) 22.0 [place] % (Auto) 6.5 Eos % (Auto) 0.1 Baso % (Auto) 0.2 Lymph # (Auto) 2.12 [place] # (Auto) 0.6 Eos # (Auto) 0.0 Baso # (Auto) 0.0 Abs Immat Gran (auto) 0.06 H Absolute Neuts (auto) 6.8 H Absolute Nucleated RBC 0.0 Nucleated RBC % 0.0 RPR Pending Blood Type A Positive Antibody Screen Negative Discharge Plan Discharge Attending physician on discharge: Zach Flynn Consulting providers: Zach Flynn ; Sebastian Dimas ; Janice Neri Discharging Clinician: Zach Flynn Patient Disposition: Home, Self-Care Activity: may drive after 2 weeks Diet: regular Discharge Instructions: Call or return if temperature above 100.4? F, increased abdominal pain, increased vaginal bleeding or any new problems. Education: Mom and Baby Guide Given to: Mother Follow-Up: Call your delivering provider's office for an appointment to be seen in: 6 Weeks Mom and baby should come to the [facility] for the follow-up appointment. Appointment Date/Time: December 18, 2021 at 3:30 pm What to expect at your follow-up visit: Blood Pressure Check Physical Assessment Call [phone] if you are unable to keep your appointment time. BREAST CARE: * Wear a snug supportive bra. * For engorgement discomfort: Breast Feeding: * Apply warm moist washcloths * Express milk as needed to relieve engorgement * Wear loose clothing * For sore nipples: * Identify correct latch-on * Apply warm moist washcloths before and after nursing * Air dry nipples after nursing * May apply Lansinoh cream to nipples EPISIOTOMY/PERINEAL CARE: * Until bleeding stops, use your soto bottle after urinating * Change your pad frequently throughout the day * You may take sitz baths several times a day (fill your bathtub with warm water and soak for 20 minutes.) Do NOT bathe in the water * No tub baths until seen by your physician - You may shower ACTIVITY: * Rest as much as possible. * Do not exercise or lift anything heavier than your baby (such as laundry or other children.) * Avoid stairs or driving as much as possible. * Do not put anything into the vagina. No douching, tampons, or sexual activity until seen by physician. NOTIFY PHYSICIAN IF YOU HAVE ANY QUESTIONS OR IF ANY OF THE FOLLOWING SYMPTOMS OCCUR: * If your episiotomy or incision becomes red, swollen, or more painful than what you have experienced in the hospital. * If your vaginal bleeding becomes foul smelling. * If your vaginal bleeding becomes more heavy than a period or if your bleeding changes from pink to bright red. However, you may pass an occasional walnut-sized clot once or twice for the first week . * If you experience a sharp, shooting pain in you calves. * If you discover a hard, reddened area on your breast or if you experience flu-like symptoms. DIET: * Eat regular, well-balanced meals. * Drink plenty of fluids daily. If , drink to thi
[2021-12-15] MEDS: OXYTOCIN 30 UNITS/NS 500 ML 30 UNITS/500 ML BAG 125 UNITS IV CONT (10:37)
[2021-12-15] MEDS: BENZOCAINE 20% AER SPR (*SP) 56 GM CAN 1 SPRAY TOPICAL (12:34)
[2021-12-15] MEDS: WITCH HAZEL 40 PADS 1 PAD TOPICAL (12:34)
[2021-12-15 12:49] LABS: Rapid Plasma Reagin Reactive (NonReactive)
--- NOTE | 2021-12-15 13:05 | PC.NURSE ---
Lab called to report positive RPR. Called Dr. Flynn. Pt has history of positive RPR with prior with negative confirmation both with this and last. Dr. Flynn will come talk to pt.
--- NOTE | 2021-12-15 13:19 | OBPPTRN ---
Patient transferred to post room #276 via wheelchair. Support person present. Oriented to unit, room, information board, rooming in, admission packet and security measures. Patient verbalizes understanding.
[2021-12-15] MEDS: IBUPROFEN 600 MG TABLET PO ×2 (14:13→21:23)
[2021-12-16 00:05] VITALS: BP 123/78; PULSE 60; RESP 16; TEMP 36.8; O2SAT 100
[2021-12-16 03:20] VITALS: BP 113/76; PULSE 64; RESP 16; TEMP 36.4; O2SAT 100
[2021-12-16] MEDS: IBUPROFEN 600 MG TABLET PO ×3 (03:35→19:46)
[2021-12-16 05:17] LABS: Hematocrit 36.5 % (37.0-47.0); Hemoglobin 12.4 g/dL (12.0-15.0)
[2021-12-16 08:40] VITALS: BP 125/78; PULSE 64; RESP 18; TEMP 36.6; O2SAT 100
[2021-12-16] MEDS: MULTIVIT/MIN/PREN/FOL AC/IRON TABLET 1 TAB PO (09:54)
--- NOTE | 2021-12-16 11:04 | WPDANLDPN2 ---
Anes-Prog Note L&D Date/Time: 12/16/21 11:04 Neuraxial method: epidural Epidural/Spinal procedure site: clean & non-tender Neuro status: Neuro function grossly intact. Vital Signs: Last Vital Signs Temp 97.8 F 12/16/21 08:40 Pulse 64 12/16/21 08:40 Resp 18 12/16/21 08:40 BP 125/78 12/16/21 08:40 Pulse Ox 100 12/16/21 08:40 O2 Del Method Room Air 12/16/21 03:20 Pain score (VAS): 0 Patient feedback: Patient satisfied with anesthetic care.
--- NOTE | 2021-12-16 12:16 | PM.OBPNVD ---
OB - PN: Subj Subjective Date/time seen: 12/16/21 12:16 Narrative: Pain OK. She has a history of +RPR with negative T. Pallidum antibodies at least twice in the past, including in this in June 2021. OB - PN: Obj Data Labs CBC & Chem 7: 12/16/21 03:40 Labs: Laboratory Results - last 24 hr 12/15/21 12/16/21 04:32 03:40 Hgb 12.4 Hct 36.5 L RPR Reactive A OB - PN A/P Assessment and Plan (1) (normal spontaneous vaginal delivery): Code(s): O80 - Encounter for full-term uncomplicated delivery Status: Acute Assessment and Plan: A: PPD#1, doing well. False positive RPR. P: Have discussed with pediatrics both yesterday and today. Sendout T. Pallidum antibody test might be resulted tomorrow. Hope to send the patient home tomorrow. (2) Biological false positive RPR test: Code(s): R76.8 - Other specified abnormal immunological findings in serum Status: Acute Exam Psych: Other: AVSS ABD soft, nontender, fundus firm EXT nontender
--- NOTE | 2021-12-16 14:53 | PC.NURSE ---
2298 - Mother led the conversation with her experience and plan to feed her so far and her ability to independently latch optimally without discomfort. Reminded parents to use good handwashing technique to prevent infection. Mother is feeding appropriately for growth of infant and understands stimulating to eat if needed. has had appropriate feedings in the last 24 hours meets the outcomes for weight, output and jaundice at this time. Mother states she is confident to continue effectively her infant at home or when to call for assistance and denies any additional assistance or education at this time. Reinforced understanding of milk production, transition of milk, signs of adequate intake, prevention/relief of engorgement, responsive after visualizing feeding cues, the different methods of stimulating to breastfeed 2-3 hours after the start of the last feeding, community resources, medication information reviewed per [facility] and when to call a provider using the resource of the mom and baby guide/[facility] website. Mother voiced understanding of the education shared.
--- NOTE | 2021-12-16 16:45 | PC.NURSE ---
Laboratory Tests 05/21/18 02:17 T.pallidum Ab (FTA-ABS) Nonreactive
--- NOTE | 2021-12-16 16:52 | PC.NURSE ---
Laboratory Tests 05/21/18 05/21/18 03/13/20 02:17 02:17 21:12 RPR Reactive H Non-reactive T.pallidum Ab (FTA-ABS) Nonreactive 12/15/21 04:32 RPR Reactive A T.pallidum Ab (FTA-ABS)
--- NOTE | 2021-12-16 18:36 | PC.NURSE ---
At 1715: Red top lab label drawn to send to [facility] lab to run FTA antibody test since baby needs to stay per load haul dump operator until the test is resulted. Flor, Harness Maker, set up the process for specimen to be sent to [facility] lab so that results could be processed sooner than the specimen that was sent to [email or web address] in [place], [place] on 12/15/21. Pt verbally consented to having her blood drawn and sent to [facility] lab today, 12/16/21.
[2021-12-16 19:45] VITALS: BP 118/63; PULSE 61; RESP 16; TEMP 36.5
[2021-12-17 07:15] VITALS: BP 116/82; PULSE 66; RESP 16; TEMP 36.6; O2SAT 100
[2021-12-17 09:00] VITALS: PULSE 66; RESP 16; O2SAT 100
[2021-12-18 15:25] VITALS: BP 133/88; PULSE 72; RESP 16; TEMP 37.1; O2SAT 100
[2021-12-18 22:07] LABS: Treponema pallidum Ab FTA ABS Nonreactive (Nonreactive)
== END 2021-12-17 15:50 | disposition home or self-care (01) | DRG 807 ==
LOC: ANHLDR 10:03 → ANHOB2 12-16 12:26 → ANHLDR 12-20 10:24 → ANHOB2 12-20 10:24
PROVIDERS: Obstetrics & Gynecology; Admitting Provider Obstetrics & Gynecology; PCP Internal Medicine; Visit Provider Student in an Organized Health Care Education/Training Program
DX: O76 Abnormality in fetal heart rate and rhythm complicating labor and delivery (principal); Z37.0 Single live birth; O70.1 Second degree perineal laceration during delivery; Z3A.39 39 weeks gestation of pregnancy; R76.8 Other specified abnormal immunological findings in serum; Z88.0 Allergy status to penicillin
CPT/HCPCS: 36415; 84112; 85014; 85018; 85025; 86592; 86780; 86850; 86900; 86901; A9270; J2590; J2795; J7120

== ENCOUNTER 2022-06-01 08:42 | Emergency (ER) | payer OTHER, SELFPAY ==
[2022-06-01 08:46] VITALS: BP 125/65; PULSE 78; RESP 16; TEMP 36.1; O2SAT 100
--- NOTE | 2022-06-01 09:14 | ED.EAR ---
HPI - Ear Problem General Chief complaint: Ear Stated complaint: Ear Pain Time Seen by Provider: 06/01/22 09:14 Source: patient Mode of arrival: ambulatory Limitations: no limitations History of Present Illness HPI Narrative: 31-year-old female presents for complaint of left ear pain, onset today. She endorses sinus pressure and congestion over the last several days. She endorses her children had RSV about 2 weeks ago. She is currently . Denies tinnitus, dizziness, nausea, vomiting, fevers or chills. MD Complaint: ear pain Related Data Allergies Allergy/AdvReac Type Severity Reaction Status Date / Time Penicillins Allergy Mild RASH,NAUSEA Verified 06/01/22 08:58 Review of Systems Review of Systems: CONSTITUTIONAL: Denies malaise, chills, or fever. EYES: Denies visual changes, redness, or discharge. ENT: Reports ear pain CARDIOVASCULAR: Denies chest pain, palpitations, or edema. RESPIRATORY: Denies cough or dyspnea. GASTROINTESTINAL: Denies abdominal pain, nausea, vomiting, diarrhea SKIN: Denies rash or itching. MUSCULOSKELETAL: Denies myalgia. NEUROLOGIC: Denies headache. All systems reviewed & are unremarkable except as noted in HPI and below PMFSH Past Medical History Medical History (normal spontaneous vaginal delivery) Retained portions of products of conception following delivery without hemorrhage Family History Family History Other Unknown family medical history Social History Social History Smoking status: Never smoker Second hand tobacco smoke exposure: No Substance use: never Spiritual care concerns: No Comments At time of signature, agree with nursing past medical, surgical, social and family history. There is no relevant family history pertinent to the presenting complaint Exam Narrative: GENERAL: Well-appearing, Appears in pain EYES: PERRLA, conjunctivae clear ENT: Nares clear. Mucous membranes moist. right TM pearly rowlye with dull light reflex; left TM erythematous and bulging with purulent effusion; no tragal tenderness. Oropharynx not erythematous without lesions. no drooling, no hoarseness, no trismus, uvula midline. NECK: Supple. No lymphadenopathy CHEST: Clear to auscultation, breath sounds equal. HEART: Regular rate and rhythm. No murmur heard. SKIN: Warm, dry, no rash. NEURO: Alert and oriented x3. PSYCH: Normal mood and affect Course Course Emergency Course: Patient is aware of diagnosis, understands and agrees to treatment plan. Anticipatory guidance given. Patient agrees to follow-up as directed and is aware of reasons to seek care at the emergency department. Portions of this record may have been created with voice recognition software Level of Care: Express Care Visit Vital Signs Vital signs: Vital Signs Temperature 97 F L 06/01/22 08:46 Pulse Rate 78 06/01/22 08:46 Respiratory Rate 16 06/01/22 08:46 Blood Pressure 125/65 06/01/22 08:46 Pulse Oximetry 100 06/01/22 08:46 Oxygen Delivery Room Air 06/01/22 08:46 Temperature 97 F L 06/01/22 08:46 Pulse Rate 78 06/01/22 08:46 Respiratory Rate 16 06/01/22 08:46 Blood Pressure 125/65 06/01/22 08:46 Pulse Oximetry 100 06/01/22 08:46 Oxygen Delivery Room Air 06/01/22 08:46 Reviewed Medical Decision Making MDM Narrative Medical decision making narrative: Advised supportive measures and signs/symptoms to go to the ER. Patient is appropriate for outpatient treatment and follow-up. Differential Diagnosis Differential Diagnosis: Coronavirus, strep pharyngitis, allergic rhinitis, upper respiratory tract infection, sinusitis, rhinosinusitis, nasopharyngitis, viral pharyngitis, otitis media, otitis externa, eustachian tube dysfunction, foreign body, cerumen impaction. Vital Signs Vital Sign
== END 2022-06-01 09:31 | disposition home or self-care (01) ==
PROVIDERS: Emergency Provider Nurse Practitioner Family
DX: H66.002 Acute suppurative otitis media without spontaneous rupture of ear drum, left ear (principal)
CPT/HCPCS: 99213; G0463

== ENCOUNTER 2023-05-02 13:08 | Outpatient (CLI) | payer OTHER, SELFPAY ==
--- NOTE | ~2023-05-02 | XR_ITS ---
XR chest 2V 05/02/2023 13:24 Indication: Productive cough and vomiting Procedure: 2 view chest Comparison: No prior studies for comparison. Findings: Heart size normal. No focal air space disease, pulmonary edema, pleural effusion or suspect ed pneumothorax. Impression: 1: No acute cardiopulmonary disease. Reviewed, dictated and finalized at location A. Impression: 1: No acute cardiopulmonary disease.
== END 2023-05-02 13:09 | disposition home or self-care (01) ==
PROVIDERS: PCP Family Medicine; Visit Provider Physician Assistant Medical
DX: R05.8 Other specified cough (principal); R11.10 Vomiting, unspecified
CPT/HCPCS: 71046